=== PATIENT | male | born 1960 | race Caucasian/White ===

== ENCOUNTER → 2019-12-01 | Outpatient (CLI) | payer OTHER ==
--- NOTE | 2019-12-01 13:53 | Diagnostic Imaging Report ---
PROCEDURE: MRI lumbar spine. TECHNIQUE: Multiplanar, multisequence MRI of the lumbar spine was performed without contrast. INDICATION: Chronic low back pain. No prior studies are available for comparison. Curvature of the lumbar spine is normal. There appears to be minimal retrolisthesis of L2 on L3. Vertebral body heights are maintained. No acute compression fracture or geographic marrow lesion is seen. There is generalized lumbar degenerative disc disease with variable disc space narrowing and desiccation. This appears to be most severe at the L2-L3 level and L5-S1 levels where there is moderate disc space narrowing as well as Modic changes in the adjacent endplates. The conus is unremarkable at the L1 level. T12-L1: Central canal is patent. Neural foramina are patent. L1-T2: Hypertrophic facet changes are noted. Central canal is patent. Neural foramina are patent. L2-L3: There is hypertrophic facet changes noted. There is broad-based disc/osteophyte complex as well as a wide based midline disc bulge indenting the ventral thecal sac and significantly narrowing the central canal. There is severe bilateral lateral recess stenosis. There is also significant bilateral neural foraminal stenosis. L3-L4: Facet changes with ligament thickening and broad-based disc/osteophyte complex results in moderate central canal stenosis. There is severe bilateral lateral recess stenosis. There is also significant left and moderate right neural foraminal stenosis. L5-S1: Broad-based disc/osteophyte complex with ligamentous thickening and facet changes result in moderate central canal stenosis. There is severe bilateral lateral recess stenosis with significant left and moderate right neural foraminal stenosis. L5-S1: Marked hypertrophic facet degenerative changes are noted. This broad-based disc/osteophyte complex indenting the ventral thecal sac producing moderate central canal narrowing. There is severe bilateral lateral recess stenosis as well as moderate bilateral neural foraminal stenosis. Paraspinous tissues are unremarkable. IMPRESSION: Severe multilevel lumbar spondylosis and facet arthropathy with multilevel central canal, lateral recess and neural foraminal stenosis described level by level above. This is greatest at the L2-3 level where there is also a prominent disc bulge. No acute compression fracture is identified. Dictated by: Dictated on workstation # [id number]
== END ==
LOC: RAD 12:09
PROVIDERS: ATTEND Nurse Practitioner Family
DX: M47.817 Spondylosis without myelopathy or radiculopathy, lumbosacral region (principal); M48.07 Spinal stenosis, lumbosacral region; M51.16 Intervertebral disc disorders with radiculopathy, lumbar region
CPT/HCPCS: 72148

== ENCOUNTER 2020-05-23 14:02 | Inpatient (IN) | payer OTHER ==
[~2020-05-23] VITALS: Ht 190.5 cm; Wt 138.7 kg
[2020-05-23] MEDS ORDERED: fentaNYL INJECTION 100 MCG/2 ML AMP IVP STA ×3 (14:33→16:23)
--- NOTE | 2020-05-23 14:35 | ED Abdominal Pain ---
General Chief Complaint: Abdominal/GI Problems Stated Complaint: POSSIBLE BOWEL OBSTRUCTION Nursing Triage Note: PT PRESENTS TO ED VIA POV FROM DR OFFICE FOR SUSPECTED BOWEL OBSTRUCTION. PT REPORTS 4-5 DAYS OF ABDOMINAL BLOATING, GENERALIZED UPPER ABDOMINAL PAIN, AND CONSTIPATION. PT REPORTS TRYING SEVERAL THINGS OVER THE COUNTER WITH NO SUCCESS. Sepsis Screen: No Definite Risk Source of Information: Patient Exam Limitations: No Limitations (LILLIAM COREAS) History of Present Illness Date Seen by Provider: May 23, 2020 Time Seen by Provider: 14:20 Initial Comments Pt here by private vehicle for abdominal pain, constipation and possible bowel obstruction. He was seen at his primary care office today for these complaints and was told to come to the [facility]. He reports constipation for the last 5 days, he has tried several laxatives over that time producing only very small bowel movements. He states that he has also started having significantly bleeding external hemorrhoids during this time. He has never had a colonoscopy. He reports having some blood in his stools prior to this episode of constipation. He has had some nausea, no vomiting, decreased appetite, constipation, no fever or chills. Timing/Duration: 4-5 Days Location: Generalized Abdomen Radiation: No Radiation Modifying Factors: Worsens With Movement, Worsens With Palpation Associated Symptoms: No Fever/Chills; Nausea/Vomiting; No Shortness of Air; Swe lling/Mass in Abdomen (Abdominal distention) (LILLIAM COREAS) Timing/Duration: 4-5 Days, Getting Worse Location: Generalized Abdomen Radiation: No Radiation Modifying Factors: Worsens With Eating, Worsens With Movement, Worsens With Palpation Associated Symptoms: No Fever/Chills; Nausea/Vomiting, Swelling/Mass in Abdomen (Abdominal distention) (RYAN BURTON MD) Allergies and Home Medications Allergies Coded Allergies: clonidine (Verified Allergy, Severe, Anaphylaxis, 05/23/20) hydralazine (Verified Allergy, Unknown, 05/23/20) morphine (Verified Allergy, Unknown, 05/23/20) Patient Home Medication List Home Medication List Reviewed: Yes (RYAN BURTON MD) Review of Systems Review of Systems Constitutional: No chills, No fever, No weakness EENTM: No Nose Congestion, No Throat Pain Respiratory: Cough; Denies Shortness of Air, Denies Wheezing Cardiovascular: Denies Chest Pain, Denies Edema, Denies Palpitations Gastrointestinal: Abdomen Distended, Abdominal Pain, Constipated; Denies Diarrhea; Nausea, Rectal Bleeding; Denies Vomiting Genitourinary: Denies Burning, Denies Hematuria, Denies Incontinence Musculoskeletal: No back pain, No muscle weakness Skin: no symptoms reported Psychiatric/Neurological: Denies Headache, Denies Numbness, Denies Paresthesia, Denies Tingling (LILLIAM COREAS) Constitutional: No chills, No fever Gastrointestinal: Abdomen Distended, Abdominal Pain, Constipated, Nausea, Rectal Bleeding (Hemorrhoids), Vomiting (RYAN BURTON MD) All Other Systems Reviewed Negative Unless Noted: Yes (RYAN BURTON MD) Past Ycyliyi-Yygswn-Diuvmn Hx Past Med/Social Hx: Reviewed Nursing Past Med/Soc Hx (RYAN BURTON MD) Patient Social History Recent Infectious Disease Expo: No (LILLIAM COREAS) Family Medical History Reviewed Nursing Family Hx (RYAN BURTON MD) Physical Exam Vital Signs Vital Signs - First Documented 05/23/20 14:05 Temp 36.5 Pulse 76 Resp 20 B/P (MAP) 158/90 (112) Pulse Ox 98 (RYAN BURTON MD) Vital Signs Capillary Refill : Less Than 3 Seconds (LILLIAM COREAS) Height/Weight/BMI Height: '" Weight: lbs. oz. kg; 38.00 BMI Method: General Appearance: WD/WN, moderate distress, obese HEENT: PERRL/EOMI, normal ENT inspection, TMs normal, pharynx normal Neck: non-tender, full range of motion, supple, normal inspection Respiratory: chest non-tender, lungs clear, normal breath sounds Cardiovascular: normal peripheral pulses, regular rate, rhythm Gastrointestinal: normal bowel sounds, distended, tenderness (Generalized) Extremities: normal range of motion, non-tender, normal inspection, no pedal edema, no calf tenderness Back: normal inspection Neurologic/Psychiatric: no motor/sensory deficits, alert, normal mood/affect, oriented x 3 Skin: normal color, warm/dry (LILLIAM COREAS) General Appearance: WD/WN, moderate distress HEENT: PERRL/EOMI, pharynx normal Neck: full range of motion, supple Respiratory: lungs clear, normal breath sounds Cardiovascular: regular rate, rhythm, no murmur Gastrointestinal: normal bowel sounds, distended; No guarding, No rebound; tenderness (Generalized) Extremities: non-tender, normal inspection Back: no CVA tenderness, no vertebral tenderness Neurologic/Psychiatric: alert, oriented x 3 Skin: normal color, warm/dry (RYAN BURTON MD) Progress/Results/Core Measures Results/Orders Lab Results Laboratory Tests Test 05/23/20 14:25 05/23/20 15:25 Range/Units White Blood Count 6.9 4.3-11.0 10^3/uL Red Blood Count 4.36 4.30-5.52 10^6/uL Hemoglobin 13.7 13.3-17.7 g/dL Hematocrit 41 40-54 % Mean Corpuscular Volume 93 80-99 fL Mean Corpuscular Hemoglobin 31 25-34 pg Mean Corpuscular Hemoglobin Concent 34 32-36 g/dL Red Cell Distribution Width 14.7 H 10.0-14.5 % Platelet Count 89 L 130-400 10^3/uL Mean Platelet Volume 10.5 9.0-12.2 fL Immature Granulocyte % (Auto) 0 % Neutrophils (%) (Auto) 57 42-75 % Lymphocytes (%) (Auto) 31 12-44 % Monocytes (%) (Auto) 8 0-12 % Eosinophils (%) (Auto) 4 0-10 % Basophils (%) (Auto) 0 0-10 % Neutrophils # (Auto) 3.9 1.8-7.8 10^3/uL Lymphocytes # (Auto) 2.1 1.0-4.0 10^3/uL Monocytes # (Auto) 0.5 0.0-1.0 10^3/uL Eosinophils # (Auto) 0.3 0.0-0.3 10^3/uL Basophils # (Auto) 0.0 0.0-0.1 10^3/uL Immature Granulocyte # (Auto) 0.0 0.0-0.1 10^3/uL Sodium Level 142 135-145 MMOL/L Potassium Level 3.9 3.6-5.0 MMOL/L Chloride Level 111 H 98-107 MMOL/L Carbon Dioxide Level 24 21-32 MMOL/L Anion Gap 7 5-14 MMOL/L Blood Urea Nitrogen 15 7-18 MG/DL Creatinine 1.04 0.60-1.30 MG/DL Estimat Glomerular Filtration Rate > 60 BUN/Creatinine Ratio 14 Glucose Level 105 70-105 MG/DL Calcium Level 8.8 8.5-10.1 MG/DL Corrected Calcium 8.9 8.5-10.1 MG/DL Magnesium Level 2.2 1.6-2.4 MG/DL Total Bilirubin 1.2 H 0.1-1.0 MG/DL Aspartate Amino Transf (AST/SGOT) 71 H 5-34 U/L Alanine Aminotransferase (ALT/SGPT) 58 H 0-55 U/L Alkaline Phosphatase 141 H 40-136 U/L C-Reactive Protein High Sensitivity 0.43 0.00-0.50 MG/DL Total Protein 7.7 6.4-8.2 GM/DL Albumin 3.9 3.2-4.5 GM/DL Lipase 33 8-78 U/L Urine Color YELLOW Urine Clarity CLEAR Urine pH 7.0 5-9 Urine Specific [place] 1.020 1.016-1.022 Urine Protein NEGATIVE NEGATIVE Urine Glucose (UA) NEGATIVE NEGATIVE Urine Ketones NEGATIVE NEGATIVE Urine Nitrite NEGATIVE NEGATIVE Urine Bilirubin NEGATIVE NEGATIVE Urine Urobilinogen 0.2 < = 1.0 MG/DL Urine Leukocyte Esterase NEGATIVE NEGATIVE Urine RBC (Auto) NEGATIVE NEGATIVE Urine RBC NONE /HPF Urine WBC NONE /HPF Urine Squamous Epithelial Cells 0-2 /HPF Urine Crystals NONE /LPF Urine Bacteria NEGATIVE /HPF Urine Casts NONE /LPF Urine Mucus SMALL H /LPF Urine Culture Indicated NO (RYAN BURTON MD) My Orders Orders - RYAN BURTON MD Cbc With Automated Diff (05/23/20 14:33) Comprehensive Metabolic Panel (05/23/20 14:33) Hs C Reactive Protein (05/23/20 14:33) Ua Culture If Indicated (05/23/20 14:33) Ed Iv/Invasive Line Start (05/23/20 14:33) Ns Iv 1000 Ml (Sodium Chloride 0.9%) (05/23/20 14:45) Fentanyl Injection (Sublimaze Injection (05/23/20 14:33) Magnesium (05/23/20 14:37) Lipase (05/23/20 14:37) Ondansetron Injection (Zofran Injectio (05/23/20 14:45) Ondansetron Injection (Zofran Injectio (05/23/20 14:36) Fentanyl Injection (Sublimaze Injection (05/23/20 14:56) Ct Abdomen/Pelvis W (05/23/20 15:09) Iohexol Injection (Omnipaque 350 Mg/Ml 1 (05/23/20 15:30) Received Contrast (Hold Metformin- Contr (05/23/20 15:30) Ns (Ivpb) (Sodium Chloride 0.9% Ivpb Bag (05/23/20 15:30) Fentanyl Injection (Sublimaze Injection (05/23/20 16:23) Hydrocodone/Apap 7.5/325 Tab (Lortab 7. (05/23/20 16:23) Ct Chest Wo (05/23/20 16:31) Dexamethasone Injection (Decadron Inje (05/23/20 16:45) Promethazine Injection (Phenergan Injec (05/23/20 17:26) Alpha Feto Protein Marker (05/23/20 17:56) (RYAN BURTON MD) Medications Given in ED Current Medications Medications Dose Ordered Sig/Sami Route Start Time Stop Time Status Last Admin Dose Admin Dexamethasone Sodium Phosphate 10 mg ONCE ONCE IV 05/23/20 16:45 05/23/20 16:46 DC 05/23/20 16:59 10 MG Iohexol 100 ml ONCE ONCE IV 05/23/20 15:30 05/23/20 15:31 DC 05/23/20 15:35 100 ML Ondansetron HCl 8 mg ONCE ONCE IVP 05/23/20 14:45 05/23/20 14:46 DC 05/23/20 14:44 8 MG Promethazine HCl 25 mg STK-MED ONCE .ROUTE 05/23/20 17:26 05/23/20 17:31 DC 05/23/20 17:32 12.5 MG Sodium Chloride 100 ml ONCE ONCE IV 05/23/20 15:30 05/23/20 15:31 DC 05/23/20 15:35 80 ML Sodium Chloride 1,000 ml @ 0 mls/hr Q0M ONCE IV 05/23/20 14:45 05/23/20 14:46 DC 05/23/20 14:45 1,000 MLS/HR (RYAN BURTON MD) Vital Signs/I&O 05/23/20 14:05 Temp 36.5 Pulse 76 Resp 20 B/P (MAP) 158/90 (112) Pulse Ox 98 (RYAN BURTON MD) Blood Pressure Mean: 112 Progress Progress Note : Time: 14:45 Progress Note Pt here for constipation sent from primary care for possible bowel obstruction. Currently having some nausea with abdominal pain/distention. Ordered CBC, CMP, Lipase, UA, Mg. Ordered 50mcg Fentanyl, 8mg Zofran. 1L NS bolus started. Anticipate CT abdomen/pelvis with contrast, will check kidney function prior to contrast. (LILLIAM COREAS) Progress Note : Progress Note I have seen and evaluated the patient and agree with above except as indicated. I have directed the plan of care. Patient is here with intractable global abdominal pain that he states is greatest at the upper abdomen. Does have nausea and vomiting currently. Thought he was constipated and has done fleets enemas as well as mag citrate. He has not had much relief but has had small bowel movements. He has pushed to the point of bleeding hemorrhoids. Has not had hemorrhoids previously. States the hemorrhoids are tender. Denies previous colonoscopy. Was seen at [facility] by Dillon Sparks who recommended ED evaluation. He is retching on arrival. Concerns for bowel obstruction. Evaluation as above. Plan for IV, labs, fentanyl 50 mcg IV, Zofran 8 mg IV and normal saline [address] abdomen pelvis with contrast ordered. Monitor patient. 1627: CT abdomen pelvis shows mass within the liver. I did discuss the case with Dr. Chu. We will get noncontrast CT scan of the chest and patient will receive another 50 mcg of fentanyl IV as well as 10 mg of Decadron IV to try to reduce swelling and pain. Monitor patient. 1755: Patient had another episode of nausea and vomiting. He did get hydrocodone 7.5 mg p.o. to try to convert him to orals. He is not tolerating. Given his persistent pain and nausea, patient will require admission. I did discuss the case with Dr. Duron and she accepts patient for admission, inpatient status. She will work on setting up tissue biopsy through our interventional radiology department. [id number]: I did discuss the case with Dr. Chu and he accepts patient in consult. He will likely see him tomorrow evening. All findings and concerns were discussed with patient and family including concerns for liver cancer pending tissue biopsy. All questions answered. Patient and family agree to plan. (RAYN BURTON MD) Diagnostic Imaging Diagonstic Imaging: CT Plain Films/CT/US/NM/MRI: abdomen, pelvis Comments [facility]. [place], [place] NAME: MARLENE BOSS [facility] REC#: [id number] PT STATUS: REG ER : 1960 PHYSICIAN: RYAN BURTON MD ADMIT DATE: 05/23/20/ER Signed Date of Exam:05/23/20 CT ABDOMEN/PELVIS W INDICATION: Abdominal pain. CT abdomen and pelvis obtained with IV contrast bolus. There is no prior study for comparison. TECHNIQUE: Multiple contiguous axial images were obtained through the abdomen and pelvis after administration of intravenous contrast. Auto Exposure Controls were utilized during the CT exam to meet ALARA standards for radiation dose reduction. All CT scans use one or more of the following dose optimizing techniques: automated exposure control, MA and/or KvP adjustment based on patient size and exam type or iterative reconstruction. The visualized portions of the lung bases demonstrate some mild scarring or atelectasis in the right middle lobe. There is no consolidation or pleural fluid. There is no free intraperitoneal air. The liver shows a nodular contour suggesting cirrhosis. There is a inhomogeneous mass in the right lobe of the liver superiorly, with hyperdense component peripherally and a central low-density component. This mass measured about 6.5 x 4.4 cm. There appears to be a separate enhancing lesion in the right lobe of the liver or inferiorly measuring about 2 cm. There is a tiny hypodense nonspecific lesion the left lobe of the liver measuring 8 mm. Patient has had previous cholecystectomy. Spleen was not appreciably enlarged. Adrenals and pancreas appear normal. The kidneys bilaterally are unremarkable. Visualized bowel loops show no sign of bowel wall thickening. There is a minimal trace of ascites in the pelvis. There are uncomplicated sigmoid diverticuli. There are some collateral vessels in the omentum. IMPRESSION: Nodular contour of the liver compatible with cirrhosis, with inhomogeneous mass in the right lobe superiorly, neoplasm not excluded. There is a tiny nonspecific lesion in the left lobe of the liver measuring about 8 mm. There is a separate enhancing lesion in the right lobe of the liver more inferiorly measuring about 2 cm. There is a minimal trace of ascites. There are scattered collateral vessels in the omentum which may be the result of portal hypertension. There is no sign of bowel obstruction. Dictated by: Dictated on workstation # [id number] Dict: 05/23/20 1605 Trans: 05/23/208 [facility] [id number] Interpreted by: SANCHEZ AGRAWAL MD Electronically signed by: SANCHEZ AGRAWAL MD 05/23/20 1658 Diagonstic Imaging: CT Plain Films/CT/US/NM/MRI: chest Comments [facility] [place] NAME: MARLENE BOSS [facility] REC#: [id number] PT STATUS: REG ER : 1960 PHYSICIAN: RYAN BURTON MD ADMIT DATE: 05/23/20/ER Draft Date of Exam:05/23/20 CT CHEST WO PROCEDURE: CT chest without contrast. TECHNIQUE: Multiple contiguous axial images were obtained through the chest without the use of intravenous contrast. Auto Exposure Controls were utilized during the CT exam to meet ALARA standards for radiation dose reduction. INDICATION: Liver mass CORRELATION STUDY: CT abdomen and pelvis performed earlier today FINDINGS: There are shotty, predominantly subcentimeter mediastinal, axillary and base of neck lymph nodes. Heart size is within normal limits. There are scattered mild coronary artery calcifications. Thoracic aortic contour unremarkable. Thyroid gland is enlarged, particularly of the right lobe with a somewhat heterogeneous appearance. GE junction unremarkable. No pulmonary infiltrate. Densely calcified granuloma in the left upper lobe. Small cystic change within the lung vu. No concerning pulmonary mass. Osseous structures demonstrate mild bridging osteophytes to be present. Visualized portion of the upper abdomen described at recent dedicated CT imaging. IMPRESSION: 1. Negative for acute abnormality of the chest. No concerning pulmonary mass. 2. Scattered small shotty mediastinal, axillary and base of neck cervical lymph nodes. Dictated on workstation # [id number] Dict: 05/23/20 1659 Trans: 05/23/20 1717 [id number] Interpreted by: JAMES POLK DO Electronically signed by: (RYAN BURTON MD) Departure Communication (Admissions) Time/Spoke to Admitting Phy: 17:55 Time/Spoke to Consulting Phy: 17:58 (RYAN BURTON MD) Impression Primary Impression: Liver mass, right lobe Additional Impressions: Intractable nausea and vomiting Intractable abdominal pain Disposition: ADMITTED INPATIENT Condition: Stable Admissions Decision to Admit Reason: Admit from ER (General) Decision to Admit/Date: May 23, 2020 Time/Decision to Admit Time: 17:55 (RYAN BURTON MD) Departure-Patient Inst. Referrals: [facility] (PCP) Primary Care Physician DILLON SPARKS (Family) Primary Care Physician LILLIAM COREAS May 23, 2020 14:35 RYAN BURTON MD May 23, 2020 18:09
[2020-05-23] MEDS ORDERED: ONDANSETRON 4 MG/2 ML (SDV) Z0FRAN ONE (14:36)
[2020-05-23 14:39] LABS: BASOPHILS % (AUTO) 0 % (0-10); HEMOGLOBIN 13.7 g/dL (13.3-17.7); MEAN CORPUSCULAR VOLUME 93 fL (80-99)
[2020-05-23 14:41] LABS: EOSINOPHILS # (AUTO) 0.3 10^3/uL (0.0-0.3); EOSINOPHILS % (AUTO) 4 % (0-10); HEMATOCRIT 41 % (40-54); LYMPHOCYTES # (AUTO) 2.1 10^3/uL (1.0-4.0); LYMPHOCYTES % (AUTO) 31 % (12-44); MEAN CORPUSCULAR HEMOGLOBIN 31 pg (25-34); MEAN CORPUSCULAR HGB CONC 34 g/dL (32-36); MEAN PLATELET VOLUME 10.5 fL (9.0-12.2); MONOCYTES # (AUTO) 0.5 10^3/uL (0.0-1.0); MONOCYTES % (AUTO) 8 % (0-12); NEUTROPHILS # (AUTO) 3.9 10^3/uL (1.8-7.8); NEUTROPHILS % (AUTO) 57 % (42-75); WHITE BLOOD COUNT 6.9 10^3/uL (4.3-11.0)
[2020-05-23 14:44] LABS: ALBUMIN 3.9 GM/DL (3.2-4.5); CHLORIDE 111 MMOL/L (98-107); POTASSIUM 3.9 MMOL/L (3.6-5.0); SODIUM 142 MMOL/L (135-145)
[2020-05-23 14:45] LABS: CALCIUM 8.8 MG/DL (8.5-10.1); PLATELET COUNT 89 10^3/uL (130-400)
[2020-05-23] MEDS ORDERED: ONDANSETRON 4 MG/2 ML (SDV) Z0FRAN IVP ONE (14:45)
[2020-05-23] MEDS ORDERED: NS IV 1000 ML 1,000 ML IV ONE (14:45)
[2020-05-23 14:46] LABS: GLUCOSE 105 MG/DL (70-105)
[2020-05-23 14:47] LABS: TOTAL PROTEIN 7.7 GM/DL (6.4-8.2)
[2020-05-23 14:48] LABS: BILIRUBIN,TOTAL 1.2 MG/DL (0.1-1.0); CARBON DIOXIDE 24 MMOL/L (21-32)
[2020-05-23 14:50] LABS: ALKALINE PHOSPHATASE 141 U/L (40-136); CREATININE SERUM 1.04 MG/DL (0.60-1.30); GFR ESTIMATED > 60
[2020-05-23 14:51] LABS: BUN/CREATININE RATIO 14
[2020-05-23 14:53] LABS: ALANINE AMINOTRANSFERASE 58 U/L (0-55)
[2020-05-23 14:54] LABS: MAGNESIUM 2.2 MG/DL (1.6-2.4)
--- NOTE | 2020-05-23 15:23 | NUR ---
Pt reports feeling much better and is visibly resting in bed more comfortably after second dose of fentanyl.
[2020-05-23] MEDS ORDERED: IOHEXOL 350 MG/ML 100 ML (OMNIPAQUE 350) VIAL IV ONE (15:30)
[2020-05-23] MEDS ORDERED: HOLD METFORMIN - RECEIVED CONTRAST 20 ML VIAL IV SCH (15:30)
[2020-05-23] MEDS ORDERED: NS 100 ML (IVPB) BAG IV ONE (15:30)
[2020-05-23 15:33] LABS: BILIRUBIN,URINE NEGATIVE (NEGATIVE); CLARITY,URINE CLEAR; COLOR,URINE YELLOW; GLUCOSE, URINE (UA) NEGATIVE (NEGATIVE); KETONES,URINE NEGATIVE (NEGATIVE); LEUKOCYTE ESTERASE ,URINE NEGATIVE (NEGATIVE); NITRITE,URINE NEGATIVE (NEGATIVE); PROTEIN,URINE NEGATIVE (NEGATIVE)
[2020-05-23 15:41] LABS: BACTERIA,URINE NEGATIVE /HPF; SQUAMOUS EPITHELIAL CELL,UR 0-2 /HPF
--- NOTE | 2020-05-23 16:20 | Diagnostic Imaging Report ---
INDICATION: Abdominal pain. CT abdomen and pelvis obtained with IV contrast bolus. There is no prior study for comparison. TECHNIQUE: Multiple contiguous axial images were obtained through the abdomen and pelvis after administration of intravenous contrast. Auto Exposure Controls were utilized during the CT exam to meet ALARA standards for radiation dose reduction. All CT scans use one or more of the following dose optimizing techniques: automated exposure control, MA and/or KvP adjustment based on patient size and exam type or iterative reconstruction. The visualized portions of the lung bases demonstrate some mild scarring or atelectasis in the right middle lobe. There is no consolidation or pleural fluid. There is no free intraperitoneal air. The liver shows a nodular contour suggesting cirrhosis. There is a inhomogeneous mass in the right lobe of the liver superiorly, with hyperdense component peripherally and a central low-density component. This mass measured about 6.5 x 4.4 cm. There appears to be a separate enhancing lesion in the right lobe of the liver or inferiorly measuring about 2 cm. There is a tiny hypodense nonspecific lesion the left lobe of the liver measuring 8 mm. Patient has had previous cholecystectomy. Spleen was not appreciably enlarged. Adrenals and pancreas appear normal. The kidneys bilaterally are unremarkable. Visualized bowel loops show no sign of bowel wall thickening. There is a minimal trace of ascites in the pelvis. There are uncomplicated sigmoid diverticuli. There are some collateral vessels in the omentum. IMPRESSION: Nodular contour of the liver compatible with cirrhosis, with inhomogeneous mass in the right lobe superiorly, neoplasm not excluded. There is a tiny nonspecific lesion in the left lobe of the liver measuring about 8 mm. There is a separate enhancing lesion in the right lobe of the liver more inferiorly measuring about 2 cm. There is a minimal trace of ascites. There are scattered collateral vessels in the omentum which may be the result of portal hypertension. There is no sign of bowel obstruction. Dictated by: Dictated on workstation # [id number]
[2020-05-23] MEDS ORDERED: HYDROcodone/APAP 7.5 MG/325 MG (LORTAB, LORCET PLUS) TABLET PO STA (16:23)
--- NOTE | 2020-05-23 17:18 | Diagnostic Imaging Report ---
PROCEDURE: CT chest without contrast. TECHNIQUE: Multiple contiguous axial images were obtained through the chest without the use of intravenous contrast. Auto Exposure Controls were utilized during the CT exam to meet ALARA standards for radiation dose reduction. INDICATION: Liver mass CORRELATION STUDY: CT abdomen and pelvis performed earlier today FINDINGS: There are shotty, predominantly subcentimeter mediastinal, axillary and base of neck lymph nodes. Heart size is within normal limits. There are scattered mild coronary artery calcifications. Thoracic aortic contour unremarkable. Thyroid gland is enlarged, particularly of the right lobe with a somewhat heterogeneous appearance. GE junction unremarkable. No pulmonary infiltrate. Densely calcified granuloma in the left upper lobe. Small cystic change within the lung vu. No concerning pulmonary mass. Osseous structures demonstrate mild bridging osteophytes to be present. Visualized portion of the upper abdomen described at recent dedicated CT imaging. IMPRESSION: 1. Negative for acute abnormality of the chest. No concerning pulmonary mass. 2. Scattered small shotty mediastinal, axillary and base of neck cervical lymph nodes. Dictated by: Dictated on workstation # [id number]
[2020-05-23] MEDS ORDERED: PROMETHAZINE INJ 25 MG/ML (PHENERGAN) AMP ONE (17:26)
--- NOTE | 2020-05-23 18:23 | NUR ---
Attempted to call report; no answer on .
[2020-05-23 18:51] VITALS: BP 190/104
--- NOTE | 2020-05-23 18:58 | NUR ---
MARLENE BOSS admitted to room 414-1, with an admitting diagnosis of liver mass, on 05/23/20 from ED via wheelchair, accompanied by staff.MARLENE BOSS introduced to surroundings, call light, bed controls, phone, TV, temperature control, lights, meal times, smoking policy, visitor policy, side rail policy, bathrooms and showers. Patient Rights given to patient in the handbook. MARLENE BSOS verbalizes understanding that [facility] is not responsible for the loss or damage to any personal effects or valuables that are kept in the patients posession during their hospitalization.
[2020-05-23 19:05] VITALS: BP 172/99
[2020-05-23] MEDS ORDERED: fentaNYL INJECTION 100 MCG/2 ML AMP IVP PRN (19:15)
[2020-05-23] MEDS ORDERED: ONDANSETRON 4 MG/2 ML (SDV) Z0FRAN IVP PRN (19:15)
[2020-05-23] MEDS: LACTATED RINGERS 1,000 ML IV SCH (19:51)
[2020-05-23 20:49] VITALS: BP 167/83
--- NOTE | 2020-05-23 20:55 | NUR ---
Dr. Duron notified of increased BP at 190/104 on admit - 172/99 and most recent 167/83. also informed of pain unrelieved by Fentanyl. to put orders in and new order rec to continue pts home BP medication of Losartum/HCTZ 100/25 daily.
[2020-05-23] MEDS ORDERED: LOSA1TAB23 PO (20:57)
[2020-05-23] MEDS ORDERED: PROMETHAZINE INJ 25 MG/ML (PHENERGAN) AMP IVP PRN (21:00)
--- NOTE | 2020-05-23 21:37 | NUR ---
Dr. Duron notified about [facility] flagging Dilaudid order due to Morphine allergy. Pt states his reaction was itching. states she is okay with having Dilaudid on E[place] and new order rec to add Benadryl 25 mg IV q 4 hrs prn.
[2020-05-23] MEDS: KETOROLAC 30 MG/ML VIAL IVP PRN (21:57)
[2020-05-23] MEDS ORDERED: LOSARTAN 100 MG (COZAAR) TABLET ONE (22:07)
[2020-05-23] MEDS ORDERED: HYDROCHLOROTHIAZIDE 25 MG (HCTZ) TAB ONE (22:07)
[2020-05-23] MEDS: HYDROCHLOROTHIAZIDE 25 MG (HCTZ) TAB PO SCH (22:13)
[2020-05-23] MEDS: LOSARTAN 100 MG (COZAAR) TABLET PO SCH (22:13)
[2020-05-23 23:12] VITALS: BP 157/91
[2020-05-23] MEDS: HYDROmorphone 2 MG/ML VIAL (DILAUDID) IVP PRN (23:15)
[2020-05-24 04:11] VITALS: BP 127/69
[2020-05-24 05:17] LABS: MONOCYTES # (AUTO) 0.2 10^3/uL (0.0-1.0); MONOCYTES % (AUTO) 4 % (0-12)
[2020-05-24 05:19] LABS: BASOPHILS % (AUTO) 0 % (0-10); EOSINOPHILS % (AUTO) 0 % (0-10); HEMATOCRIT 36 % (40-54); HEMOGLOBIN 12.2 g/dL (13.3-17.7); LYMPHOCYTES # (AUTO) 1.2 10^3/uL (1.0-4.0); LYMPHOCYTES % (AUTO) 19 % (12-44); MEAN CORPUSCULAR HEMOGLOBIN 32 pg (25-34); MEAN CORPUSCULAR HGB CONC 34 g/dL (32-36); MEAN CORPUSCULAR VOLUME 93 fL (80-99); MEAN PLATELET VOLUME 11.4 fL (9.0-12.2); NEUTROPHILS # (AUTO) 4.8 10^3/uL (1.8-7.8); NEUTROPHILS % (AUTO) 76 % (42-75); PLATELET COUNT 86 10^3/uL (130-400); WHITE BLOOD COUNT 6.3 10^3/uL (4.3-11.0)
[2020-05-24 05:36] LABS: ALBUMIN 3.3 GM/DL (3.2-4.5)
[2020-05-24 05:37] LABS: CHLORIDE 109 MMOL/L (98-107); POTASSIUM 4.1 MMOL/L (3.6-5.0); SODIUM 136 MMOL/L (135-145)
[2020-05-24 05:38] LABS: CALCIUM 8.1 MG/DL (8.5-10.1)
[2020-05-24 05:39] LABS: GLUCOSE 243 MG/DL (70-105); TOTAL PROTEIN 6.5 GM/DL (6.4-8.2)
[2020-05-24 05:40] LABS: CARBON DIOXIDE 18 MMOL/L (21-32)
[2020-05-24 05:42] LABS: ALKALINE PHOSPHATASE 109 U/L (40-136)
[2020-05-24 05:43] LABS: CREATININE SERUM 1.09 MG/DL (0.60-1.30); GFR ESTIMATED > 60
[2020-05-24 05:44] LABS: BUN/CREATININE RATIO 16
[2020-05-24 05:45] LABS: ALANINE AMINOTRANSFERASE 47 U/L (0-55)
[2020-05-24] MEDS: HYDROmorphone 2 MG/ML VIAL (DILAUDID) IVP PRN (06:50)
[2020-05-24] MEDS: LACTATED RINGERS 1,000 ML IV SCH (06:52)
[2020-05-24 08:00] VITALS: BP 145/79
[2020-05-24] MEDS: HYDROCHLOROTHIAZIDE 25 MG (HCTZ) TAB PO SCH (08:35)
[2020-05-24] MEDS: LOSARTAN 100 MG (COZAAR) TABLET PO SCH (08:35)
[2020-05-24] MEDS: diphenhydrAMINE 50 MG/ML INJ (BENADRYL) IVP PRN ×2 (08:36→20:20)
--- NOTE | 2020-05-24 09:51 | History & Physical ---
HPI History of Present Illness: About a week ago was getting ready for work and noted that his blue jeans wouldn't button. He had been constipated and related it to that, had to go to the store and get jeans that fit and he went to work. Has been using milk of mag and suppositories and magnesium citrate, and even a Fleet's enema and wasn't getting anything out and his abdomen kept seeming to get more swollen. He called Emmanuel Young, saw him on Saturday afternoon and they told him after that visit to go to the ER due to concern for bowel obstruction. He has had marked abdominal pain. He got several doses of fentanyl in ER and hydrocodone without much improvement. Switched to dilaudid last night and that has helped significantly. He denies fever but admits nausea in ER, hadn't really had prior to that. Source: patient Date seen by provider: May 24, 2020 Time Seen by Provider: 09:51 Attending Physician Nieves Duron MD PCP [facility] Date of Admission May 23, 2020 at 18:00 Home Medications Home Medications Reviewed patient Home Medication Reconciliation performed by pharmacy medication reconciliations natural resource technician and/or nursing. Patients Allergies have been reviewed. 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, worked as a bouncer) Tobacco type used: Cigarettes Have you traveled recently?: No Past Medical History PMHx: COVID infection Feb 2020 HTN Diabetes Rheumatic fever Hep C- treated with interferon in [place], uncertain if he had remission SurgHx: Left hip replacement with subsequent dislocation and repeat surgery Strabismus surgery x 2 Appendectomy Cholecystectomy Tonsillectomy Back surgery Family Medical History Significant Family History: Cancer (brother- prostate), CAD Under 55 Years Old (father at age 54 with heart attack, alcoholism), Psychiatric Problems (mother by suicide when Fredis was 18) Review of Systems ([facility]) Constitutional: No fever EENTM: No nose congestion, No throat pain Respiratory: No cough, No short of breath Cardiovascular: No chest pain Gastrointestinal: see HPI Genitourinary: No dysuria Musculoskeletal: back pain Skin: rash (dry skin on legs, excoriations and scabbing, states happens every winter) Psychiatric/Neurological: Denies Anxiety, Denies Depressed Reviewed Test Results Reviewed Test Results Lab Laboratory Tests Test 05/23/20 14:25 05/23/20 15:25 05/24/20 04:58 Range/Units White Blood Count 6.9 6.3 4.3-11.0 10^3/uL Red Blood Count 4.36 3.82 L 4.30-5.52 10^6/uL Hemoglobin 13.7 12.2 L 13.3-17.7 g/dL Hematocrit 41 36 L 40-54 % Mean Corpuscular Volume 93 93 80-99 fL Mean Corpuscular Hemoglobin 31 32 25-34 pg Mean Corpuscular Hemoglobin Concent 34 34 32-36 g/dL Red Cell Distribution Width 14.7 H 14.4 10.0-14.5 % Platelet Count 89 L 86 L 130-400 10^3/uL Mean Platelet Volume 10.5 11.4 9.0-12.2 fL Immature Granulocyte % (Auto) 0 2 % Neutrophils (%) (Auto) 57 76 H 42-75 % Lymphocytes (%) (Auto) 31 19 12-44 % Monocytes (%) (Auto) 8 4 0-12 % Eosinophils (%) (Auto) 4 0 0-10 % Basophils (%) (Auto) 0 0 0-10 % Neutrophils # (Auto) 3.9 4.8 1.8-7.8 10^3/uL Lymphocytes # (Auto) 2.1 1.2 1.0-4.0 10^3/uL Monocytes # (Auto) 0.5 0.2 0.0-1.0 10^3/uL Eosinophils # (Auto) 0.3 0.0 0.0-0.3 10^3/uL Basophils # (Auto) 0.0 0.0 0.0-0.1 10^3/uL Immature Granulocyte # (Auto) 0.0 0.1 0.0-0.1 10^3/uL Sodium Level 142 136 135-145 MMOL/L Potassium Level 3.9 4.1 3.6-5.0 MMOL/L Chloride Level 111 H 109 H 98-107 MMOL/L Carbon Dioxide Level 24 18 L 21-32 MMOL/L Anion Gap 7 9 5-14 MMOL/L Blood Urea Nitrogen 15 17 7-18 MG/DL Creatinine 1.04 1.09 0.60-1.30 MG/DL Estimat Glomerular Filtration Rate > 60 > 60 BUN/Creatinine Ratio 14 16 Glucose Level 105 243 H 70-105 MG/DL Calcium Level 8.8 8.1 L 8.5-10.1 MG/DL Corrected Calcium 8.9 8.7 8.5-10.1 MG/DL Magnesium Level 2.2 1.6-2.4 MG/DL Total Bilirubin 1.2 H 1.0 0.1-1.0 MG/DL Aspartate Amino Transf (AST/SGOT) 71 H 54 H 5-34 U/L Alanine Aminotransferase (ALT/SGPT) 58 H 47 0-55 U/L Alkaline Phosphatase 141 H 109 40-136 U/L C-Reactive Protein High Sensitivity 0.43 0.00-0.50 MG/DL Total Protein 7.7 6.5 6.4-8.2 GM/DL Albumin 3.9 3.3 3.2-4.5 GM/DL Lipase 33 8-78 U/L Urine Color YELLOW Urine Clarity CLEAR Urine pH 7.0 5-9 Urine Specific [place] 1.020 1.016-1.022 Urine Protein NEGATIVE NEGATIVE Urine Glucose (UA) NEGATIVE NEGATIVE Urine Ketones NEGATIVE NEGATIVE Urine Nitrite NEGATIVE NEGATIVE Urine Bilirubin NEGATIVE NEGATIVE Urine Urobilinogen 0.2 < = 1.0 MG/DL Urine Leukocyte Esterase NEGATIVE NEGATIVE Urine RBC (Auto) NEGATIVE NEGATIVE Urine RBC NONE /HPF Urine WBC NONE /HPF Urine Squamous Epithelial Cells 0-2 /HPF Urine Crystals NONE /LPF Urine Bacteria NEGATIVE /HPF Urine Casts NONE /LPF Urine Mucus SMALL H /LPF Urine Culture Indicated NO Radiology CT abd/pelvis: IMPRESSION: Nodular contour of the liver compatible with cirrhosis, with inhomogeneous mass in the right lobe superiorly, neoplasm not excluded. There is a tiny nonspecific lesion in the left lobe of the liver measuring about 8 mm. There is a separate enhancing lesion in the right lobe of the liver more inferiorly measuring about 2 cm. There is a minimal trace of ascites. There are scattered collateral vess els in the omentum which may be the result of portal hypertension. There is no sign of bowel obstruction. CT chest: IMPRESSION: 1. Negative for acute abnormality of the chest. No concerning pulmonary mass. 2. Scattered small shotty mediastinal, axillary and base of neck cervical lymph nodes. Physical Exam-([facility]) Physical Exam Vital Signs VS - Last 72 Hours, by Label 05/23/20 05/23/20 05/23/20 05/23/20 14:05 18:40 18:51 19:05 Temp 36.5 36.5 35.5 36.6 Pulse 76 76 74 70 Resp 20 20 18 20 B/P (MAP) 158/90 (112) 158/90 190/104 (132) 172/99 (123) Pulse Ox 98 98 96 96 O2 Delivery Room Air Room Air Room Air 05/23/20 05/23/20 05/23/20 05/24/20 19:20 20:49 23:12 04:11 Temp 36.8 36.8 Pulse 62 79 73 Resp 20 20 B/P (MAP) 167/83 (111) 157/91 (113) 127/69 (88) Pulse Ox 96 94 96 96 O2 Delivery Room Air Room Air Room Air Room Air 05/24/20 05/24/20 05/24/20 05/24/20 08:00 08:00 11:21 16:20 Temp 36.8 36.8 36.6 Pulse 67 66 64 Resp 20 20 22 B/P (MAP) 145/79 (101) 137/79 (98) 126/68 (87) Pulse Ox 93 93 94 O2 Delivery Room Air Room Air Room Air Room Air 05/24/20 19:53 Temp 37.2 Pulse 69 Resp 20 B/P (MAP) 128/65 (86) Pulse Ox 96 O2 Delivery Room Air Capillary Refill : Less Than 3 Seconds General Appearance: WD/WN, no apparent distress Respiratory: lungs clear, normal breath sounds Cardiovascular: regular rate, rhythm, no murmur Gastrointestinal: normal bowel sounds, distended, tenderness (epigastric) Extremities: other (trace edema) Neurologic/Psychiatric: alert, normal mood/affect Skin: other (excoriations on lower legs) Assessment/Plan Assessment/Plan Admission Status: Inpatient Order (span 2 midnights) Reason for Inpatient Admission: severe uncontolled pain (1) Intractable abdominal pain Status: Acute Assessment & Plan: CT with liver mass, minimal ascites, no obstruction. Required IV dilaudid for pain management overnight, will trial PO dilaudid as he is hopeful to go home as soon as possible. PPI, bowel regimen. Due to bloating and swelling per patient, will trial a dose of furosemide, but discussed unsure how helpful this may be as he does not have pitting edema and has minimal ascites. (2) Liver mass, right lobe Status: Acute Assessment & Plan: Concern for hepatocellular carcinoma, AFP pending, MRI pending. Oncology consulted, appreciate recommendations. (3) Hepatitis C Status: Chronic Assessment & Plan: H/O, unsure if treatment effective, will check viral load. Qualifiers: Qualified Codes: B18.2 - Chronic viral hepatitis C (4) Diabetes Status: Chronic Assessment & Plan: Hold home oral, use sliding scale insulin as needed- not having a lot of intake. Qualifiers: Qualified Codes: E11.65 - Type 2 diabetes mellitus with hyperglycemia (5) Hypertension Status: Chronic Qualifiers: Qualified Codes: I10 - Essential (primary) hypertension (6) Thrombocytopenia Status: Acute Assessment & Plan: Suspect secondary to liver disease, monitor. (7) Elevated liver enzymes Status: Acute Assessment & Plan: Improving this am, suspect due to liver mass, monitor (8) DVT prophylaxis Status: Acute Assessment & Plan: SCDS, no pharmacologic due to low platelets, consideration for biopsy in near future. NIEVES DURON MD May 24, 2020 09:51
[2020-05-24] MEDS ORDERED: FUROSEMIDE 40 MG/4 ML INJ (LASIX) IVP NR (10:15)
[2020-05-24] MEDS ORDERED: HYDROmorphone (DILAUDID) 2 MG TAB PO PRN (10:15)
[2020-05-24] MEDS ORDERED: GLBR5T PO (10:52)
[2020-05-24] MEDS ORDERED: MELO15TA39 PO (10:52)
[2020-05-24 11:21] VITALS: BP 137/79
[2020-05-24] MEDS ORDERED: PRAZ2CAP2 PO (11:50)
--- NOTE | 2020-05-24 11:51 | NUR ---
SPOKE WITH PT, WENT THRU THE EXT MED HISTORY AND CALLED [facility] TO COMPLETE THE MED REC PRAZOSIN 2MG WAS LAST FILLED 02-16-2020 #90/90DS BUT IS NOT SHOWN ON THE EXT MED HISTORY OTC MEDS: NONE PTS PREFERRED PHARMACY IS [facility] IN [place] HOWEVER THEY ARE NOT IN THE [email or web address] SYSTEM. I HAVE REQUESTED THAT THIS PHARMACY BE ADDED AND WILL KEEP CHECKING THROUGHOUT THE DAY TO UPDATE HIS PREFERRED PHARM
[2020-05-24] MEDS: SIMETHICONE 80 MG (MYLICON) CHEW PO SCH ×3 (12:26→20:19)
--- NOTE | 2020-05-24 12:31 | NUR ---
RD ASSESSMENT PMHx: HTN; DM; hepatitis C; PT INTERACTION: Pt was awake and pleasant during nutrition consult for MST score. Pt states current appetite is good. Note avg PO intake 50% x2meal, per chart review. Pt states following a regular diet at home, and has no issues with chewing/swallowing food. Pt states no recent issues with n/v/c/d, and that his last BM was 2. Note pt not currently on bowel regimen per chart review. Pt states recent wt loss, but was unsure of amount/timeframe. Note unable to determine recent wt hx, per chart review. When asked about current DM management, "I don't check it that often regularly, and with everything else going on, it doesn't cross my mind." Note unable to determine recent HbA1c, per chart review. Given wt hx, appetite and PO intake, pt is not at risk for malnutrition at this time. Est. kcal needs: 6492-8610 kcal | 15-18 kcal/kg Est. Pro needs: 110-139 g Pro | 0.8-1.0 g Pro/kg PES STATEMENT: Inadequate oral intake (NI-2.1) related to loss of appetite, as evidenced by pt interview, and avg PO intake 50% x2meal. INTERVENTION: Continue with current diet order of CHO 75g/m 0snack diet. Pt may benefit from nutrition supplementation if PO intake declines. Offered diet education on DM management, but pt declined at this time. May attempt to offer again prior to discharge. Will continue to follow and reassess as pt needs, intake, and status change. Thu L[address] LD [phone] cell
[2020-05-24 16:20] VITALS: BP 126/68
[2020-05-24] MEDS ORDERED: polyethylene glycoL POWDER 17 GM (MIRALAX) PACK PO PRN (17:30)
--- NOTE | 2020-05-24 17:38 | NUR ---
PT REPORTS THAT MORPHINE THAT IS LISTED AN ALLERGY MADE HIS "NOSE ITCH".
[2020-05-24] MEDS: PANTOPRAZOLE 40 MG (PROTONIX) TAB PO SCH (18:15)
[2020-05-24 19:53] VITALS: BP 128/65
--- NOTE | 2020-05-24 20:16 | CONSULTATION REPORT ---
DATE OF SERVICE: 05/24/2020 The patient is admitted to room 0414. REFERRING PHYSICIAN: Batsheva Duron MD IMPRESSION: 1. A 59-year-old male admitted to the hospital with abdominal pain and bloating of short duration. 2. CT scan of the abdomen done at the emergency room showing multiple enhancing masses in the liver, favoring a neoplasm. 3. Remote history of hepatitis C, which was treated with interferon and ribavirin for a month and treatment stopped because of intolerance. The patient has not had a followup evaluation. 4. CT scan of the abdomen currently, also shows nodular contour of the liver compatible with cirrhosis and collateral vessels in the omentum suggesting portal hypertension. There was no evidence of splenomegaly. RECOMMENDATIONS: 1. Continue management of abdominal pain as you are doing and titrate the medications as needed. Start the patient on stool softeners and laxatives to prevent constipation. Because of the pain medications. 2. I have requested an alpha fetoprotein level, which is pending at this time and we will await that result. If this is elevated, most likely he has a primary hepatocellular carcinoma that would suggest an evaluation at GI oncology at [facility] for possible liver-directed therapy. 3. The patient would benefit from hep C viral load evaluation to see if he has active disease. 4. May discharge from the hospital when stable from medical standpoint. Schedule a followup appointment with me at the [facility]. BRIEF HISTORY: The patient is a 59-year-old male, who complained of worsening abdominal pain and bloating since the last one week. He could not wear his regular pants overnight and he went to his primary physician. After evaluation, he was sent to [facility] Emergency Room in [place] for further evaluation. CT scans of the abdomen done at the emergency room showed enhancing lesions in the liver with evidence of cirrhosis. No other potential primary sites were identified. As his pain was not being controlled, he was admitted to the hospital. Medical oncology consultation was requested for further recommendations and management. PAST MEDICAL HISTORY: Only significant for hepatitis C diagnosed more than 20 years ago. He was started on treatment with interferon and ribavirin for approximately a month or so and could not tolerate the treatments. He has stopped it and has not had any followup since then. No other major medical problems. PAST SURGICAL HISTORY: Include tonsillectomy and adenoidectomy, appendectomy, cholecystectomy, bilateral eye surgeries for divergent strabismus and left hip replacement in 12/2019. The patient developed COVID-19 in 01/2020, but has recovered from this. SOCIAL HISTORY: The patient is and lives in [place], [place]. He has approximately 50 to [id number] history of tobacco use, but quit in December 2019 prior to his hip surgery. He has moderate alcohol use and through the summer months, he would drink 4 to 5 beers every weekend. During winter months. He would occasionally drink a beer. He denied any binge drinking. No history of recreational drug use. 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 He has a daughters, all of whom live in [place]. FAMILY HISTORY: Significant for his brother who had prostate cancer in his upper 50s. Father of coronary artery disease in his upper 50s. Mother with CVA in her 60s. The patient does not know the extended family history as he has not kept up with his relative's. PHYSICAL EXAMINATION: GENERAL: Today showed an elderly male, moderately obese, awake and oriented, in mild distress due to the abdominal pain. VITAL SIGNS: His temperature was 36.6, pulse rate of 64, respirations 22, blood pressure 126/68 with oxygen saturation of 94% on room air. HEENT: Normocephalic, extraocular muscles intact, conjunctivae pink, oral mucosa moist. NECK: Supple, with no JVD. No cervical, supraclavicular or axillary lymphadenopathy palpable. CHEST: Symmetrical. LUNGS: Fairly clear to auscultation without wheezes or rales. CARDIOVASCULAR: Regular in rate and rhythm. No murmurs or gallops heard. ABDOMEN: Slightly obese, soft with tenderness in the upper quadrants with voluntary guarding. Deep palpation was not done. EXTREMITIES: Showed no edema. NEUROLOGIC: Grossly intact without focal motor deficits. LABORATORY DATA: CBC done today showed WBC 6.3, hemoglobin 12.2, platelet count 86,000 with neutrophil count 4.8 and lymphocyte count 1.2. Chemistry panel done yesterday at the time of admission showed relatively normal electrolytes. BUN was 15 and creatinine 1.04 with GFR more than 60 mL per minute. Total bilirubin was 1.2 with AST 71, ALT 58 and alkaline phosphatase 141 and albumin level of 3.9. Liver function studies were better today with a total bilirubin of 1.0, AST 54, ALT 47, alkaline phosphatase 109 and albumin level of 3.3. Alpha fetoprotein level drawn yesterday is pending. CT scan of the abdomen and pelvis done yesterday showed inhomogeneous mass in the right lobe of the liver superiorly with hyperdense component peripherally and central low density component measuring 6.5 x 4.4 cm. Separate enhancing lesion in the right lobe of the liver inferiorly measuring 2 cm in diameter. Tiny hypodense nonspecific lesion in the left lobe of the liver measures 8 mm. Minimal ascites and scattered collateral vessels in the omentum, probably due to portal hypertension. Spleen was not significantly enlarged. CT scan of the chest did not show any acute abnormality or concerning pulmonary mass. Scattered small shotty mediastinal, axillary and base of neck cervical lymph nodes. Thank you for allowing me to participate in this patient's care. I will follow the patient with you and make appropriate recommendations. Job ID: [id number] DocumentID: [id number] Dictated Date: 05/24/2020 17:53:54 Paperhanger Date: 05/24/2020 20:14:06 Dictated By: SINA ORTA MD
[2020-05-24] MEDS: SENNA W/DOCUSATE (SENOKOT S) TABLET PO SCH (20:19)
[2020-05-24] MEDS: inSUlin ASPART (NovoLOG) 1 UNIT/0.01 ML (CHARGE PER UNIT) SC SCH (20:25)
[2020-05-24] MEDS ORDERED: PRAZOSIN 1 MG CAPSULE (MINIPRESS) NON-FORMULARY PO SCH (21:00)
[2020-05-25 00:44] VITALS: BP 114/61
[2020-05-25 04:19] VITALS: BP 123/62
[2020-05-25] MEDS: inSUlin ASPART (NovoLOG) 1 UNIT/0.01 ML (CHARGE PER UNIT) SC SCH ×2 (05:09→11:02)
[2020-05-25 05:57] LABS: HEMOGLOBIN 11.4 g/dL (13.3-17.7); MEAN PLATELET VOLUME 11.3 fL (9.0-12.2); WHITE BLOOD COUNT 8.4 10^3/uL (4.3-11.0)
[2020-05-25 06:10] LABS: ALBUMIN 3.3 GM/DL (3.2-4.5); CHLORIDE 109 MMOL/L (98-107); POTASSIUM 3.8 MMOL/L (3.6-5.0); SODIUM 139 MMOL/L (135-145)
[2020-05-25 06:12] LABS: GLUCOSE 150 MG/DL (70-105)
[2020-05-25 06:13] LABS: CARBON DIOXIDE 22 MMOL/L (21-32)
[2020-05-25 06:14] LABS: BILIRUBIN,TOTAL 0.5 MG/DL (0.1-1.0)
[2020-05-25 06:16] LABS: ALKALINE PHOSPHATASE 108 U/L (40-136); CREATININE SERUM 1.13 MG/DL (0.60-1.30); GFR ESTIMATED > 60
[2020-05-25 06:17] LABS: BUN/CREATININE RATIO 20
[2020-05-25 06:19] LABS: ALANINE AMINOTRANSFERASE 39 U/L (0-55)
[2020-05-25 08:00] VITALS: BP 175/92
[2020-05-25] MEDS: PANTOPRAZOLE 40 MG (PROTONIX) TAB PO SCH (08:25)
[2020-05-25] MEDS: LOSARTAN 100 MG (COZAAR) TABLET PO SCH (08:25)
[2020-05-25] MEDS: KETOROLAC 30 MG/ML VIAL IVP PRN (08:27)
[2020-05-25] MEDS: SIMETHICONE 80 MG (MYLICON) CHEW PO SCH (08:27)
[2020-05-25] MEDS: SENNA W/DOCUSATE (SENOKOT S) TABLET PO SCH (08:27)
[2020-05-25] MEDS: HYDROCHLOROTHIAZIDE 25 MG (HCTZ) TAB PO SCH (08:27)
[2020-05-25] MEDS ORDERED: PANT40TA52 PO (10:57)
[2020-05-25] MEDS ORDERED: POLY17PO31 PO (10:57)
[2020-05-25] MEDS ORDERED: SENN-20 PO (10:57)
[2020-05-25] MEDS ORDERED: OXC5T PO (10:57)
--- NOTE | 2020-05-25 10:59 | Discharge Summary ---
Discharge Summary Hospital Course Problems/Diagnosis: (1) Intractable abdominal pain Status: Acute Assessment & Plan: CT with liver mass, minimal ascites, no obstruction. Required IV dilaudid for pain management overnight, will trial PO dilaudid as he is hopeful to go home as soon as possible. PPI, bowel regimen. Due to bloating and swelling per patient, will trial a dose of furosemide, but discussed unsure how helpful this may be as he does not have pitting edema and has minimal ascites. 2/3- did better with oxycodone overnight, discharged with 7 day supply. (2) Liver mass, right lobe Status: Acute Assessment & Plan: Concern for hepatocellular carcinoma, AFP pending, MRI unable to be obtained due to abdominal girth and machine. Oncology consulted, will follow up outpatient. (3) Hepatitis C Status: Chronic Assessment & Plan: H/O, unsure if treatment effective, will check viral load- pending at d/c. Qualifiers: Qualified Codes: B18.2 - Chronic viral hepatitis C (4) Diabetes Status: Chronic Assessment & Plan: Resumed home med on d/c. Qualifiers: Qualified Codes: E11.65 - Type 2 diabetes mellitus with hyperglycemia (5) Hypertension Status: Chronic Qualifiers: Qualified Codes: I10 - Essential (primary) hypertension (6) Thrombocytopenia Status: Acute Assessment & Plan: Suspect secondary to liver disease, monitor. (7) Elevated liver enzymes Status: Acute Assessment & Plan: Improving, suspect due to liver mass. Hospital Course Date of Admission: May 23, 2020 at 18:00 Admission Diagnosis : Family Physician/Provider: Dillon Young Date of Discharge: 05/25/20 Discharge Diagnosis: See problem list Hospital Course: See problem list Labs and Pending Lab Test: Laboratory Tests 05/24/20 17:47: Hepatitis A IgM Antibody [Pending], Hepatitis B Surface Antigen [Pending], Hepatitis B Core IgM Antibody [Pending], Hepatitis C Antibody [Pending], Hepatitis C RNA (PCR) IUs/ml [Pending], Hepatitis C RNA (PCR) log IUs/ml [Pending] 05/24/20 20:19: Glucometer 216H 05/25/20 00:14: Glucometer 162H 05/25/20 04:42: Glucometer 141H 05/25/20 05:40: White Blood Count 8.4, Red Blood Count 3.64L, Hemoglobin 11.4L, Hematocrit 34L, Mean Corpuscular Volume 93, Mean Corpuscular Hemoglobin 31, Mean Corpuscular Hemoglobin Concent 34, Red Cell Distribution Width 14.7H, Platelet Count 95L, Mean Platelet Volume 11.3, Sodium Level 139, Potassium Level 3.8, Chloride Level 109H, Carbon Dioxide Level 22, Anion Gap 8, Blood Urea Nitrogen 23H, Creatinine 1.13, Estimat Glomerular Filtration Rate > 60, BUN/Creatinine Ratio 20, Glucose Level 150H, Calcium Level 8.0L, Corrected Calcium 8.6, Total Bilirubin 0.5, Aspartate Amino Transf (AST/SGOT) 38H, Alanine Aminotransferase (ALT/SGPT) 39, Alkaline Phosphatase 108, Total Protein 6.0L, Albumin 3.3 Home Meds Active Pantoprazole Sodium 40 Mg Tablet.dr 40 Mg PO DAILY Senna-Time S Tablet (Sennosides/Docusate Sodium) 1 Each Tablet 1 Ea PO BID Polyethylene Glycol 3350 17 Gm Powd.pack 17 Gm PO HS PRN Oxyir Tablet (Oxycodone HCl) 5 Mg Tab 5 Mg PO Q4H PRN 7 Days Reported Prazosin HCl 2 Mg Capsule 2 Mg PO HS Meloxicam 15 Mg Tablet 15 Mg PO DAILY Glyburide 5 Mg Tablet 5 Mg PO DAILY Losartan-Hctz 100-25 mg Tab (Losartan/Hydrochlorothiazide) 1 Each Tablet 1 Tab PO DAILY Assessment/Pt DC Instructions Follow up with Emmanuel Young on 06/01 at [address] pm[address] Follow up with Dr. Chu as directed. Discharge Diet: ADA Diet Activity as Tolerated: Yes (do not use heavy machinery or drive while on oxycodone until you know how it will effect you) Discharge Physical Examination Allergies: Coded Allergies: clonidine (Verified Allergy, Severe, Anaphylaxis, 05/23/20) hydralazine (Verified Allergy, Unknown, 05/23/20) morphine (Verified Allergy, Unknown, 05/23/20) General Appearance: No Apparent Distress, Obese Respiratory: Lungs Clear, Normal Breath Sounds Cardiovascular: Regular Rate, Rhythm, No Murmur Gastrointestinal: Normal Bowel Sounds, Distended Extremity: No Pedal Edema Skin: Normal Color, Warm/Dry Neurologic/Psychiatric: Alert, Normal Mood/Affect Copy Copies To 1: Emmanuel Young, NIEVES SNELL MD May 25, 2020 10:59
[2020-05-25 22:04] LABS: HEPATITIS C ANTIBODY C Reactive (Non-Reactive)
== END 2020-05-25 12:25 | disposition home or self-care (01) | DRG 392 ==
LOC: EDUNIT# 14:02 → ER 14:04 → 4TH 18:00
PROVIDERS: ADMIT Family Medicine; ATTEND Family Medicine
DX: R10.10 Upper abdominal pain, unspecified (principal); K59.00 Constipation, unspecified; K64.4 Residual hemorrhoidal skin tags; R16.0 Hepatomegaly, not elsewhere classified; R74.8 Abnormal levels of other serum enzymes; Z20.822 Contact with and (suspected) exposure to COVID-19; K74.60 Unspecified cirrhosis of liver; D69.6 Thrombocytopenia, unspecified; I10 Essential (primary) hypertension; E11.9 Type 2 diabetes mellitus without complications; B19.20 Unspecified viral hepatitis C without hepatic coma; Z86.16 Personal history of COVID-19; Z96.652 Presence of left artificial knee joint; Z87.891 Personal history of nicotine dependence; Z90.49 Acquired absence of other specified parts of digestive tract; Z88.6 Allergy status to analgesic agent; Z80.42 Family history of malignant neoplasm of prostate; Z82.49 Family history of ischemic heart disease and other diseases of the circulatory system
CPT/HCPCS: 36415; 71250; 74177; 80053; 80074; 81000; 82105; 82962; 83690; 83735; 85025; 85027; 86141; 87522

== ENCOUNTER 2020-07-20 08:17 | Outpatient (CLI) | payer OTHER ==
[~2020-07-20] VITALS: Ht 188 cm; Wt 140.5 kg
[2020-07-20] VITALS (18 sets, daily range): BP systolic 98–134; BP diastolic 62–95
[~2020-07-20 08:17] MED LIST: GLBR5T PO; LOSA1TAB23 PO; MELO15TA39 PO; OXC5T PO; PANT40TA52 PO; POLY17PO54 PO; PRAZ2CAP2 PO; SENN-20 PO
[2020-07-20] MEDS ORDERED: NS IV 1000 ML 1,000 ML IV STA (08:51)
[2020-07-20] MEDS ORDERED: MIDAZOLAM 2 MG/2 ML (VERSED) VIAL IVP ONE (09:00)
[2020-07-20] MEDS ORDERED: fentaNYL INJ 100 MCG/2 ML AMP IVP ONE (09:00)
[2020-07-20] MEDS ORDERED: LIDOCAINE 1% INJ 20 ML 20 ML VIAL INJ ONE (09:00)
[2020-07-20] MEDS ORDERED: SERT-412 PO (09:01)
[2020-07-20] MEDS ORDERED: CLON0.5T4 PO (09:01)
[2020-07-20 09:07] LABS: HEMOGLOBIN 12.7 g/dL (13.3-17.7); MEAN PLATELET VOLUME 12.1 fL (9.0-12.2); WHITE BLOOD COUNT 7.2 10^3/uL (4.3-11.0)
[2020-07-20 09:27] LABS: INR 1.2 (0.8-1.4); PROTHROMBIN TIME PATIENT 15.2 SEC (12.2-14.7)
[2020-07-20] MEDS ORDERED: HYDROcodone/APAP 5 MG/325 MG (LORTAB) TAB PO PRN (11:15)
--- NOTE | 2020-07-20 13:34 | Diagnostic Imaging Report ---
INDICATION: Liver mass. TECHNIQUE: All CT scans use one or more of the following dose optimizing techniques: automated exposure control, MA and/or KvP adjustment based on patient size and exam type or iterative reconstruction. DETAILS OF THE PROCEDURE: The patient was brought to the CT suite and placed on the table in the supine position. Axial imaging through the abdomen was performed to evaluate for an appropriate entry site. The procedure was performed utilizing conscious sedation with Radiology nursing and constant patient monitoring. The patient was given a total of 25 mcg of fentanyl intravenously and 1 mg of Versed intravenously. The total procedure time was 7 minutes. The right abdomen was prepped and draped in the usual sterile fashion. A small amount of 1% lidocaine was utilized for local anesthesia. An 18-gauge coaxial Temno needle was advanced and placed with its tip within the lesion in the dome of the right lobe of the liver. Four core biopsies were obtained. A blood patch was injected during needle removal. Hemostasis was obtained using manual compression. The patient tolerated the procedure well and left the Department in stable condition. IMPRESSION: Successful CT-guided core biopsy of a dome of right lobe liver lesion. Conscious sedation was utilized. The patient tolerated the procedure well. Pathology results are currently pending. Dictated by: Dictated on workstation # [id number]
--- NOTE | 2020-07-20 13:40 | Diagnostic Imaging Report ---
INDICATION: Liver mass and ascites. The procedure was performed to drain perihepatic ascites prior to liver biopsy. TECHNIQUE: All CT scans use one or more of the following dose optimizing techniques: automated exposure control, MA and/or KvP adjustment based on patient size and exam type or iterative reconstruction. DETAILS OF THE PROCEDURE: The patient was brought to the CT suite and placed on the table in the supine position. Axial imaging through the abdomen was performed to evaluate for an appropriate entry site. The procedure was performed utilizing conscious sedation with Radiology nursing and constant patient monitoring. The patient was given 75 mcg of fentanyl intravenously and 1 mg of Versed intravenously. The total procedure time was approximately 27 minutes. The right abdomen was prepped and draped in the usual sterile fashion. A small amount 1% lidocaine was utilized for local anesthesia. A Yueh needle was placed into the perihepatic ascites. The Yueh was exchanged over an 035 guidewire. The tract was dilated with 6-[place] [employer] and 8-[place] [employer] dilators. An 8.5-[place] [employer] All-Purpose pigtail drain was then placed into the perihepatic space. Approximately 575 mL of fluid was removed. The drain was then removed and hemostasis was obtained. The patient tolerated the procedure well. IMPRESSION: Successful CT-guided drainage of perihepatic ascites utilizing an 8.5-[place] [employer] All- Purpose drain and conscious sedation. Dictated by: Dictated on workstation # [id number]
--- NOTE | 2020-07-20 16:00 | Pre-Op Note & Conscious Sedat ---
Pre-Operative Progress Note H&P Reviewed The H&P was reviewed, patient examined and no changes noted. Date H&P Reviewed: Jul 20, 2020 Time H&P Reviewed: 09:00 Pre-Op Diagnosis: Liver mass Conscious Sedation Pre-Proced Time 09:00 ASA Score 2 For ASA 3 and 4: Consider anesthesia and medical clearance. Also, for patients with a history of failed moderate sedation consider anesthesia. Airway Lungs Heart ASA score ASA 1: a normal healthy patient ASA 2: a patient with a mild systemic disease (mid diabetes, controlled hypertension, obesity ASA 3: a patient with a severe systemic disease that limits activity (angina, COPD, prior Myocardial infarction) ASA 4: a patient with an incapacitating disease that is a constant threat to life (CHF, renal failure) ASA 5: a moribund patient not expected to survive 24 hrs. (ruptured aneurysm) ASA 6: a declared brain- patient whose organs are being harvested. For emergent operations, add the letter E after the classification Mallampati Classification Grade 2 Sedation Plan Analgesia, Amnesia, Plan communicated to team members, Discussed options with patient/fam, Discussed risks with patient/fam The patient is an appropriate candidate to undergo the planned procedure, sedation, and anesthesia. The patient immediately re-assessed prior to indication. DEANNE MURILLO MD Jul 20, 2020 16:00
== END 2020-07-20 13:00 ==
LOC: SDC 08:17
PROVIDERS: ATTEND Internal Medicine Hematology & Oncology
DX: K74.60 Unspecified cirrhosis of liver (principal); R16.0 Hepatomegaly, not elsewhere classified; R18.8 Other ascites
CPT/HCPCS: 77012; 82962; 85027; 85610; 85730; 99156; 99157; C1729 ×2; C1769; 36415

== ENCOUNTER 2020-08-03 12:49 | Outpatient (RCR) | payer OTHER ==
[2020-07-05 10:59] LABS: BASOPHILS % (AUTO) 1 % (0-10); EOSINOPHILS # (AUTO) 0.1 10^3/uL (0.0-0.3); EOSINOPHILS % (AUTO) 2 % (0-10); HEMATOCRIT 36 % (40-54); HEMOGLOBIN 12.1 g/dL (13.3-17.7); LYMPHOCYTES % (AUTO) 30 % (12-44); MEAN CORPUSCULAR HEMOGLOBIN 32 pg (25-34); MEAN CORPUSCULAR HGB CONC 33 g/dL (32-36); MEAN CORPUSCULAR VOLUME 95 fL (80-99); MONOCYTES # (AUTO) 0.6 10^3/uL (0.0-1.0); MONOCYTES % (AUTO) 8 % (0-12); NEUTROPHILS % (AUTO) 59 % (42-75); PLATELET COUNT 67 10^3/uL (130-400); WHITE BLOOD COUNT 6.8 10^3/uL (4.3-11.0)
[2020-07-05 11:19] LABS: ALBUMIN 3.6 GM/DL (3.2-4.5); BILIRUBIN,TOTAL 1.2 MG/DL (0.1-1.0); CALCIUM 8.6 MG/DL (8.5-10.1); CREATININE SERUM 1.45 MG/DL (0.60-1.30); POTASSIUM 3.6 MMOL/L (3.6-5.0); TOTAL PROTEIN 6.8 GM/DL (6.4-8.2)
[~2020-08-03] VITALS: Ht 190.5 cm; Wt 136.5 kg
[~2020-08-03 12:49] MED LIST changes: +ACETAMINOPHEN 500 MG TAB (TYLENOL) CANCER CTR PO PRN; +ATEZOLIZUMAB 1,200 MG in NS (IVPB) CANCER CENTER 250 ML IV SCH; +BEVACIZUMAB BVZR IV SCH; +CLON0.5T4 PO; +NS IV 1000 ML (CANCER CTR) IV SCH; +NS IV SCH; +SERT-412 PO
[2020-08-03] MEDS ORDERED: fentaNYL INJ 100 MCG/2 ML (CANCER CENTER) INJ ONE (13:24)
[2020-08-03] MEDS ORDERED: ONDANSETRON 8 MG, DEXAMETHASONE 4 MG/NS 50 ML IVPB (Cancer Ctr) IV ONE ×3 (13:25)
== END 2020-08-30 | disposition home or self-care (01) ==
LOC: ONC 12:49
PROVIDERS: ATTEND Internal Medicine Hematology & Oncology
DX: B19.20 Unspecified viral hepatitis C without hepatic coma (principal); K76.9 Liver disease, unspecified; K74.60 Unspecified cirrhosis of liver
CPT/HCPCS: 80053; 85025; 96374; 96375; 99213